=== PATIENT | male | born 1960 | race American Indian/Alaskan Native ===

== ENCOUNTER 2022-05-05 15:24 | Emergency (ER) | payer MEDICARE ==
[2022-05-05] MEDS ORDERED: KETOROLAC 30 MG/1 ML INJ IM ONE (17:15)
[2022-05-05] MEDS ORDERED: oxyCODONE /ACETAMINOPHEN 5-325MG TAB PO ONE (17:15)
[2022-05-05] MEDS ORDERED: CYCLOBENZAPRINE 10 MG TAB PO ONE (17:15)
[2022-05-05 18:14] LABS: Bilirubin,Urine Negative (Negative); Color,Urine Straw (Yellow); Mucus,Urine FEW /HPF; RBC,Urine < 1.0 /HPF (0.0-6.0)
[2022-05-05 18:15] LABS: Blood,Urine Negative (Negative); Protein,Urine <15 mg/dL mg/dL (Negative); Urobilinogen,Urine < 2.0 mg/dL (<2.0)
--- NOTE | 2022-05-05 18:36 | Emergency Department Report ---
ED Back Pain/Injury HPI - General Chief Complaint: Back Pain/Injury Stated Complaint: BACK PAIN Time Seen by Provider: 05/05/22 16:04 Source: patient Limitations: No Limitations - History of Present Illness Initial Comments: 61-year-old black male with a past medical history of hypertension presents to the emergency department for back pain. He states that it has been getting progressively worse since then. He denies injury or trauma, urinary symptoms, abdominal pain, chest pain, nausea, vomiting, and diaphoresis. He states that he has had a low-grade fever this morning. He states that several years ago he had back pain but has not had any for a long time. He is also requesting a refill of his hypertension and sleep medication. MD Complaint: back pain -: Gradual, This morning Similar Symptoms Previously: Yes Place: home Radiation: none Severity: severe Severity scale (0 -10): 10 Quality: aching Consistency: constant Worsens With: movement, sitting upright, deep breaths/cough Associated Symptoms: fever/chills. denies: weakness, chest pain, numbness, difficulty walking, cough, difficulty urinating, diaphoresis, incontinence, headaches, abdominal pain, loss of appetite, malaise, nausea/vomiting, rash, seizure, shortness of breath, syncope - Related Data Previous Rx's Medication Instructions Recorded Last Taken Type Cyclobenzaprine [Flexeril] 10 mg PO TID PRN #30 tab 05/05/22 Unknown Rx Lidocaine [Lidoderm] 1 each TP DAILY PRN #10 patch 05/05/22 Unknown Rx Naproxen [Naprosyn] 500 mg PO BID #14 tab 05/05/22 Unknown Rx QUEtiapine [SEROquel] 200 mg PO DAILY #30 tablet 05/05/22 Unknown Rx amLODIPine 10 mg PO DAILY #30 tab 05/05/22 Unknown Rx hydroCHLOROthiazide [HCTZ] 25 mg PO QDAY #30 tablet 05/05/22 Unknown Rx Allergies Allergy/AdvReac Type Severity Reaction Status Date / Time haloperidol [From Haldol] Allergy Unknown Verified 05/05/22 15:52 ED Review of Systems ROS: Stated complaint: BACK PAIN Other details as noted in HPI Comment: All other systems reviewed and negative Constitutional: fever. denies: chills, malaise, weakness ENT: denies: dental pain Respiratory: denies: shortness of breath Cardiovascular: denies: chest pain, palpitations, dyspnea on exertion, orthopnea, edema, syncope, paroxysmal nocturnal dyspnea Gastrointestinal: denies: abdominal pain, nausea, vomiting, diarrhea, hematemesis, melena, hematochezia Genitourinary: denies: urgency, dysuria, frequency, hematuria, discharge, testicular pain Musculoskeletal: back pain. denies: arthralgia, myalgia Skin: denies: rash, lesions Neurological: denies: headache, weakness, numbness, paresthesias, abnormal gait, vertigo ED Past Medical Hx - Past Medical History Hx Hypertension: Yes Hx Psychiatric Treatment: Yes (schizophrenia) - Surgical History Past Surgical History?: Yes Additional Surgical History: BL feet, R eye - Medications Home Medications: Home Medications Medication Instructions Recorded Confirmed Last Taken Type Cyclobenzaprine [Flexeril] 10 mg PO TID PRN #30 tab 05/05/22 Unknown Rx Lidocaine [Lidoderm] 1 each TP DAILY PRN #10 patch 05/05/22 Unknown Rx Naproxen [Naprosyn] 500 mg PO BID #14 tab 05/05/22 Unknown Rx QUEtiapine [SEROquel] 200 mg PO DAILY #30 tablet 05/05/22 Unknown Rx amLODIPine 10 mg PO DAILY #30 tab 05/05/22 Unknown Rx hydroCHLOROthiazide [HCTZ] 25 mg PO QDAY #30 tablet 05/05/22 Unknown Rx ED Physical Exam - General Limitations: No Limitations General appearance: alert, in no apparent distress - Head Head exam: Present: atraumatic, normocephalic - Eye Eye exam: Present: normal appearance. Absent: conjunctival injection, periorbital swelling, periorbital tenderness - ENT ENT exam: Present: normal exam - Neck Neck exam: Present: normal inspection, full ROM. Absent: tenderness, lymphadenopathy - Respiratory Respiratory exam: Present: normal lung sounds bilaterally. Absent: respiratory distress, wheezes, rales, rhonchi, stridor, chest wall tenderness - Cardiovascular Cardiovascular Exam: Present: regular rate - GI/Abdominal GI/Abdominal exam: Present: soft, normal bowel sounds. Absent: distended, tenderness, guarding, rebound, rigid - Extremities Exam Extremities exam: Present: normal inspection, full ROM, normal capillary refill. Absent: tenderness, pedal edema, joint swelling, calf tenderness - Back Exam Back exam: Present: normal inspection. Absent: CVA tenderness (R), CVA tenderness (L) - Neurological Exam Neurological exam: Present: alert, oriented X3, CN II-XII intact, normal gait, reflexes normal. Absent: motor sensory deficit - Psychiatric Psychiatric exam: Present: normal affect, normal mood - Skin Skin exam: Present: warm, dry, intact, normal color ED Course Vital Signs 05/05/22 05/05/22 15:45 18:49 Temperature 99.9 F H Pulse Rate 80 77 Respiratory 18 18 Rate Blood Pressure 162/90 148/96 [Left] O2 Sat by Pulse 97 100 Oximetry - Reevaluation(s) Reevaluation #1: 05/05/22 18:32 Back pain much improved. ED Medical Decision Making - Medical Decision Making 61-year-old black male with a past medical history of hypertension presents to the emergency department for back pain. He states that it has been getting progressively worse since then. He denies injury or trauma, urinary symptoms, abdominal pain, chest pain, nausea, vomiting, and diaphoresis. He states that he has had a low-grade fever this morning. He states that several years ago he had back pain but has not had any for a long time. He is also requesting a refill of his hypertension and sleep medication. Back pain improved after medication. Urine negative for UTI. Patient discharged home with a refill of requested medications along with Flexeril, and Lidoderm patches to use as directed for back pain. He is advised to follow-up with his primary care provider for further evaluation and management and return to the emergency department as needed. He verbalizes understanding of and agreement with plan of care. Lab Results 05/05/22 Range/Units 18:00 Urine Color Straw (Yellow) Urine Turbidity Clear (Clear) Urine pH 6.0 (5.0-7.0) Ur Specific [place] 1.006 (1.003-1.030) Urine Protein <15 mg/dl (Negative) mg/dL Urine Glucose (UA) Negative (Negative) mg/dL Urine Ketones Negative (Negative) mg/dL Urine Blood Negative (Negative) Urine Nitrite Negative (Negative) Ur Reducing Substances Not Reportable Urine Bilirubin Negative (Negative) Urine Ictotest Not Reportable Urine Urobilinogen < 2.0 (<2.0) mg/dL Ur Leukocyte Esterase Negative (Negative) Urine WBC (Auto) 1.0 (0.0-6.0) /HPF Urine RBC (Auto) < 1.0 (0.0-6.0) /HPF Urine Mucus Few /HPF Critical care attestation.: If time is entered above; I have spent that time in minutes in the direct care of this critically ill patient, excluding procedure time. ED Disposition Clinical Impression: Medication refill Back pain Qualifiers: Back pain location: low back pain Chronicity: acute Back pain laterality: bilateral Sciatica presence: without sciatica Qualified Code(s): M54.50 - Low back pain, unspecified Disposition: HOME / SELF CARE / HOMELESS Is pt being admited?: No Does the pt Need Aspirin: No Condition: Stable Instructions: Acute Back Pain, Adult Additional Instructions: Take medications as prescribed. Follow-up with your primary care provider if no improvement or worsening symptoms. Return to the emergency department as needed. Prescriptions: amLODIPine 10 mg PO DAILY #30 tab Cyclobenzaprine [Flexeril] 10 mg PO TID PRN #30 tab PRN Reason: Muscle Spasm hydroCHLOROthiazide [HCTZ] 25 mg PO QDAY #30 tablet Lidocaine [Lidoderm] 1 each TP DAILY PRN #10 patch PRN Reason: Pain, Moderate (4-6) Naproxen [Naprosyn] 500 mg PO BID #14 tab QUEtiapine [SEROquel] 200 mg PO DAILY #30 tablet Referrals: PRIMARY CARE, [Primary Care Provider] - 3-5 Days Time of Disposition: 18:36
[2022-05-05 18:50] VITALS: BP 148/96
== END 2022-05-05 18:48 | disposition home or self-care (01) ==
LOC: ED 15:24
DX: M54.9 Dorsalgia, unspecified (principal); Z76.0 Encounter for issue of repeat prescription; I10 Essential (primary) hypertension; F20.9 Schizophrenia, unspecified; Z79.899 Other long term (current) drug therapy
CPT/HCPCS: 81001; 96372; 99283; J1885